=== PATIENT | male | born 2000 | race Caucasian/White ===

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

== ENCOUNTER 2021-06-04 01:38 | Observation (INO) ==
[2021-06-04 02:27] LABS: Basophils # (auto) 0.02 K/uL (0-0.2); Basophils % (auto) 0.1 %; Eosinophils # (auto) 0.04 K/uL (0-0.5); Eosinophils % (auto) 0.3 %; Hematocrit (blood only) 40.4 % (42-52); Hemoglobin 14.4 g/dL (14.0-18.0); Immature Granulocytes # (auto) 0.03 K/uL (0.00-0.02); Immature Granulocytes % (auto) 0.2 %; Lymphocytes # (auto) 1.38 K/uL (1.2-3.4); Lymphocytes % (auto) 9.3 %; Mean Corpuscular Hemoglobin 30.6 pg (25-34); Mean Corpuscular Hgb Conc 35.6 g/dL (32-36); Mean Corpuscular Volume 85.8 fL (80-100); Mean Platelet Volume 10.4 fL (7.4-10.4); Monocytes # (auto) 0.74 K/uL (0.11-0.59); Neutrophils # (auto) 12.68 K/uL (1.4-6.5); Neutrophils % (auto) 85.1 %; Platelet Count 216 K/uL (130-400); RDW Coefficient of Variation 12.3 % (11.5-14.5); Red Blood Count 4.71 M/uL (4.7-6.1); White Blood Count 14.89 K/uL (4.8-10.8)
[2021-06-04 02:34] LABS: Appearance Urine Cloudy (Clear); Bacteria Urine Automated Negative (Negative); Bilirubin Urine Negative (Negative); Blood Urine Negative (Negative); Color Urine Dark Yellow; Epithelial Cell Urine Auto 20-30 /lpf (0-5); Glucose Urine UA Negative (Negative); Ketones Urine 2+ (Negative); Leukocyte Esterase Urine Negative (Negative); Nitrite Urine Negative (Negative); Protein Urine Trace (Negative); Specific Gravity Urine 1.041 (1.000-1.030); Urobilinogen Urine Negative (Negative); pH Urine 5.5 (4.5-7.5)
[2021-06-04 02:52] LABS: Albumin Globulin Ratio 1.2 (0.9-2); Albumin Level 4.3 gm/dl (3.4-5.0); BUN Creatinine Ratio 12.8 (10-20); Bilirubin,Total 2.2 mg/dl (0.2-1); Calcium 9.7 mg/dl (8.5-10.1); Creatinine Clr Calc Pharmacy 111.7 ml/min; Est GFR (African American) 134.7 ml/min; Est GFR (Non-African American) 116.2 ml/min; Globulin 3.7 gm/dl (2.5-4.0)
[2021-06-04] MEDS ORDERED: ONDANSETRON INJ 2 MG/ML 2 ML VIAL IV STA (04:44)
[2021-06-04] MEDS ORDERED: MoRPHine SULFATE 4 MG/ML 1 ML CARP\\VIAL IV STA ×2 (04:44→07:58)
[2021-06-04] MEDS ORDERED: SODIUM CHLORIDE 0.9% 1000ML 1,000 ML IV ONE (05:21)
--- NOTE | 2021-06-04 06:13 | Emergency Department Note ---
History of Present Illness General Chief complaint: Abdominal Pain Stated complaint: ABD PAIN Time Seen by Provider: 06/04/21 04:29 History of Present Illness Maximum Pain Intensity: 3 This 20-year-old male patient presents to the emergency department today for evaluation of right lower quadrant abdominal pain which began at 8 AM yesterday. The patient states symptoms have been progressively worsening throughout the day. He has been experiencing worsening pain, nausea, and has not been able to eat or drink anything due to the symptoms. He denies any fever but does report chills. He has not taken any medications for his symptoms. He denies any history of similar symptoms. The patient does still have his appendix. He rates his pain 3/10 at present describes it as sharp. He denies any diarrhea or constipation. No chest pain or dyspnea. No recent URI symptoms. Home Medications Medication Instructions Recorded Confirmed Type No Known Home Medications 06/07/19 06/10/19 History cefuroxime axetil 500 mg tablet 500 mg PO BID #3 tab 06/12/19 Rx nicotine 7 mg/24 hr daily 14 mg TRANSDERMAL QAM #21 ea 06/12/19 Rx transdermal patch prednisone 20 mg tablet 40 mg PO DAILY #60 tab 06/12/19 Rx Allergies Allergy/AdvReac Type Severity Reaction Status Date / Time No Known Allergies Allergy Verified 06/10/19 13:25 Past Med/Surg History Medical History (Updated 06/04/21 @ 08:47 by Sandra Charles PA-C) No pertinent past medical history Social History Smoking Status: Current some day smoker Tobacco Type: E-cigarettes / Vaping Cigarettes Per Day: hits whenever; Hx Alcohol Use: Yes Alcohol type: beer Hx Substance Use: Yes Last Used Substance: Days (ago) Preferred Language: Lithuanian Communication Ability: Effective Business Continuity Specialist Required: No Beliefs That Will Affect Care: None marital status: Single Current Living Situation: Other Current Living Situation Comment: [employer] [facility] Feels Safe at Home: Yes Assistive Devices: Oxygen - Continuous Review of Systems A total of 10 systems reviewed and were otherwise negative Physical Exam Vital Signs Vital Signs - 24 hr 06/04/21 01:40 06/04/21 04:13 06/04/21 06:32 Temperature 36.9 C Temperature Source Temporal Artery Scan Pulse Rate 91 H Pulse Rate [Finger] 72 76 Respiratory Rate 18 20 14 Respiratory Effort / Characteristics Non-Labored Spontaneous Non-Labored Spontaneous Non-Labored Spontaneous Respiratory Depth Normal Normal Normal Respiratory Pattern Regular Blood Pressure 117/67 Blood Pressure [Right Arm] 125/68 128/74 Blood Pressure Mean 83 Blood Pressure Mean [Right Arm] 87 92 Blood Pressure Position Sitting Blood Pressure Position [Right Arm] Pulse Oximetry 99 98 99 Oxygen Delivery Method Room Air Room Air Room Air Sepsis Recent Fever Within 48 Hours No Sepsis New/Unexplained Change in Mental Status N/A Sepsis Action Taken by Nursing No Action Required 06/04/21 07:51 06/04/21 08:36 Temperature Temperature Source Pulse Rate Pulse Rate [Finger] 83 75 Respiratory Rate 16 16 Respiratory Effort / Characteristics Respiratory Depth Respiratory Pattern Blood Pressure Blood Pressure [Right Arm] 117/69 117/64 Blood Pressure Mean Blood Pressure Mean [Right Arm] 85 81 Blood Pressure Position Blood Pressure Position [Right Arm] Semi-fowlers Pulse Oximetry 100 100 Oxygen Delivery Method Room Air Room Air Sepsis Recent Fever Within 48 Hours Sepsis New/Unexplained Change in Mental Status Sepsis Action Taken by Nursing VITALS: Vitals are noted on the nurse's note and reviewed by myself. Vital signs stable. GENERAL: This is a 20-year-old white male, in no acute distress, nondiaphoretic, well-developed well-nourished. SKIN: The skin was without rashes, erythema, edema, or bruising. There is no tenting of the skin. Capillary refill less than 2 seconds. HEAD: Normocephalic atraumatic. EYES: Conjunctivae without injection, sclerae without icterus. NECK: Supple without nuchal rigidity. No lymphadenopathy. Cervical spine is nontender. No JVD. HEART: Regular rate and rhythm without murmurs gallops or rubs. LUNGS: Clear to auscultation bilaterally without wheezes, rales or rhonchi. No retractions or accessory muscle use. ABDOMEN: Positive bowel sounds x 4. Right lower quadrant tenderness to palpation over McBurney's point. Positive Rovsing's sign. Positive rebound tenderness. Abdomen otherwise soft, without masses or organomegaly. Sweeney sign negative. No guarding or rebound tenderness. MUSCULOSKELETAL: No muscle atrophy, erythema, or edema noted. Full range of motion without joint tenderness in all extremities. No tenderness to palpation. Normal gait. Strength 5/5 throughout. NEURO: Patient was alert and oriented to person place and time. No focal neurological deficits. Course Course The patient was seen and evaluated as above. An order was placed for continuous cardiac monitoring. The monitor shows a normal sinus rhythm at a rate of 72 bpm. IV access obtained, labs drawn. Labs reviewed by myself. CT imaging performed and reviewed by myself and radiologist as noted. I discussed the findings with the patient at bedside. I discussed the case with Kristen Norton PA-C with general surgery. She did agree to see and evaluate the patient. Patient medicated with IV Mefoxin. I did offer to contact the patient's parents and he declined. Administered Medications Discontinued Medications Sodium Chloride (Nss 1000ml) 1,000 mls @ 999 mls/hr IV .Q1H1M ONE Stop: 06/04/21 06:21 Last Infusion: 06/04/21 06:34 Dose: 0 mls/hr Documented by: [id number] Admin: 06/04/21 05:25 Dose: 999 mls/hr Documented by: [id number] Ioversol (Optiray 320 100ml) 95 ml IV ONCE ONE Stop: 06/04/21 07:50 Last Admin: 06/04/21 07:50 Dose: 95 ml Documented by: [id number] Morphine Sulfate (Morphine Sulfate 4 Mg/Ml 1 Ml Carp\Vial) 4 mg IV NOW STA Stop: 06/04/21 04:45 Last Admin: 06/04/21 04:50 Dose: 4 mg Documented by: [id number] Morphine Sulfate (Morphine Sulfate 4 Mg/Ml 1 Ml Carp\Vial) 4 mg IV NOW STA Stop: 06/04/21 07:59 Last Admin: 06/04/21 08:24 Dose: 4 mg Documented by: [id number] Ondansetron HCl (Ondansetron Inj 2 Mg/Ml 2 Ml Vial) 4 mg IV NOW STA Stop: 06/04/21 04:45 Last Admin: 06/04/21 04:51 Dose: 4 mg Documented by: [id number] Medical Decision Making Differential Diagnosis Etiologies such as appendicitis, diverticulitis, obstruction, inflammatory bowel disease, renal colic, PUD, biliary pathology, pancreatitis, mesenteric ischemia, aortic pathology, infections, genitourinary, UTI, perforated viscus, as well as others were entertained. Medical Records Attestation: I reviewed the patient's medical records. Home Medications Current Medication List: was personally reviewed by sd Laboratory Data Leukocytosis of 14.89. No significant anemia or thrombocytopenia. Renal, hepatic function and electrolytes without significant abnormality. Urinalysis positive for 2+ ketones. This does appear to be contaminated specimen with 20- 30,000 epithelial cells. Result diagrams: 06/04/21 02:08 06/04/21 02:08 Lab Results 06/04/21 06/04/21 06/04/21 Range/Units 02:08 02:08 02:09 WBC 14.89 H (4.8-10.8) K/uL RBC 4.71 (4.7-6.1) M/uL Hgb 14.4 (14.0-18.0) g/dL Hct 40.4 L (42-52) % MCV 85.8 (80-100) fL MCH 30.6 (25-34) pg MCHC 35.6 (32-36) g/dL RDW Std Deviation 39.0 (36.4-46.3) fL RDW Coeff of Cheryl 12.3 (11.5-14.5) % Plt Count 216 (130-400) K/uL MPV 10.4 (7.4-10.4) fL Immature Gran % (Auto) 0.2 % Neut % (Auto) 85.1 % Lymph % (Auto) 9.3 % [place] % (Auto) 5.0 % Eos % (Auto) 0.3 % Baso % (Auto) 0.1 % Neut # (Auto) 12.68 H (1.4-6.5) K/uL Lymph # (Auto) 1.38 (1.2-3.4) K/uL [place] # (Auto) 0.74 H (0.11-0.59) K/uL Eos # (Auto) 0.04 (0-0.5) K/uL Baso # (Auto) 0.02 (0-0.2) K/uL Immature Gran # (Auto) 0.03 H (0.00-0.02) K/uL Sodium 135 L (136-145) mmol/L Potassium (3.5-5.1) mmol/L Chloride 104 (98-107) mmol/L Carbon Dioxide 27 (21-32) mmol/L Anion Gap 4.0 (3-11) BUN 12 (7-18) mg/dl Creatinine 0.94 (0.6-1.4) mg/dl Est Cr Clr Drug Dosing 111.7 ml/min Est GFR ( Amer) 134.7 ml/min Est GFR (Non-Af Amer) 116.2 ml/min BUN/Creatinine Ratio 12.8 (10-20) Glucose 106 H (70-99) mg/dl Calcium 9.7 (8.5-10.1) mg/dl Total Bilirubin 2.2 H (0.2-1) mg/dl AST (15-37) U/L ALT 17 (12-78) U/L Alkaline Phosphatase 91 (45-117) U/L Total Protein 8.0 (6.4-8.2) gm/dl Albumin 4.3 (3.4-5.0) gm/dl Globulin 3.7 (2.5-4.0) gm/dl Albumin/Globulin Ratio 1.2 (0.9-2) Lipase 64 L (73-393) U/L Urine Color Dark Yellow Urine Appearance Cloudy A (Clear) Urine pH 5.5 (4.5-7.5) Ur Specific Horace 1.041 H (1.000-1.030) Urine Protein Trace H (Negative) Urine Glucose (UA) Negative (Negative) Urine Ketones 2+ H (Negative) Urine Blood Negative (Negative) Urine Nitrite Negative (Negative) Urine Bilirubin Negative (Negative) Urine Urobilinogen Negative (Negative) Ur Leukocyte Esterase Negative (Negative) Urine WBC (Auto) 1-5 (0-5) /hpf Urine RBC (Auto) 5-10 H (0-4) /hpf U Hyaline Cast (Auto) 5-10 H (0-5) /lpf U Epithel Cells (Auto) 20-30 H (0-5) /lpf Urine Bacteria (Auto) Negative (Negative) COVID-19 Eval Order SARS-CoV-2 (PCR) (Negative) 06/04/21 06/04/21 Range/Units 05:50 05:50 WBC (4.8-10.8) K/uL RBC (4.7-6.1) M/uL Hgb (14.0-18.0) g/dL Hct (42-52) % MCV (80-100) fL MCH (25-34) pg MCHC (32-36) g/dL RDW Std Deviation (36.4-46.3) fL RDW Coeff of Cheryl (11.5-14.5) % Plt Count (130-400) K/uL MPV (7.4-10.4) fL Immature Gran % (Auto) % Neut % (Auto) % Lymph % (Auto) % [place] % (Auto) % Eos % (Auto) % Baso % (Auto) % Neut # (Auto) (1.4-6.5) K/uL Lymph # (Auto) (1.2-3.4) K/uL [place] # (Auto) (0.11-0.59) K/uL Eos # (Auto) (0-0.5) K/uL Baso # (Auto) (0-0.2) K/uL Immature Gran # (Auto) (0.00-0.02) K/uL Sodium (136-145) mmol/L Potassium (3.5-5.1) mmol/L Chloride (98-107) mmol/L Carbon Dioxide (21-32) mmol/L Anion Gap (3-11) BUN (7-18) mg/dl Creatinine (0.6-1.4) mg/dl Est Cr Clr Drug Dosing ml/min Est GFR ( Amer) ml/min Est GFR (Non-Af Amer) ml/min BUN/Creatinine Ratio (10-20) Glucose (70-99) mg/dl Calcium (8.5-10.1) mg/dl Total Bilirubin (0.2-1) mg/dl AST (15-37) U/L ALT (12-78) U/L Alkaline Phosphatase (45-117) U/L Total Protein (6.4-8.2) gm/dl Albumin (3.4-5.0) gm/dl Globulin (2.5-4.0) gm/dl Albumin/Globulin Ratio (0.9-2) Lipase (73-393) U/L Urine Color Urine Appearance (Clear) Urine pH (4.5-7.5) Ur Specific Horace (1.000-1.030) Urine Protein (Negative) Urine Glucose (UA) (Negative) Urine Ketones (Negative) Urine Blood (Negative) Urine Nitrite (Negative) Urine Bilirubin (Negative) Urine Urobilinogen (Negative) Ur Leukocyte Esterase (Negative) Urine WBC (Auto) (0-5) /hpf Urine RBC (Auto) (0-4) /hpf U Hyaline Cast (Auto) (0-5) /lpf U Epithel Cells (Auto) (0-5) /lpf Urine Bacteria (Auto) (Negative) COVID-19 Eval Order Covid19 at [facility], [place] SARS-CoV-2 (PCR) NEGATIVE (Negative) Imaging Data Radiologist's Impression: Abdomen/Pelvis CT 06/04/21 04:44 CT abd pelvis oral and IV con CLINICAL HISTORY: RLQ abdominal pain COMPARISON STUDY: No previous studies for comparison. CT DOSE: 278.59 mGy.cm TECHNIQUE: Standard CT of the Abdomen and Pelvis was performed with IV contrast. A dose lowering technique was utilized adhering to the principles of ALARA. Contrast Volume: Optiray 320, 95 ml. The patient received oral contrast. FINDINGS: Lung base: The lung bases are clear. Abdominal cavity: There is no evidence for abdominal mass, adenopathy or ascites. Liver: There is homogeneous attenuation of the liver parenchyma. There is no evidence for enhancing mass lesion. Spleen: There is homogeneous attenuation of the splenic parenchyma. There is no enhancing mass lesion. Pancreas: There is homogeneous attenuation of the pancreatic parenchyma. There is no evidence for mass lesion or peripancreatic fluid collection. Gall Bladder: The gallbladder is well distended with no evidence for intraluminal calculi, wall thickening or pericholecystic edema. Adrenal glands: The adrenal glands are normal in size and attenuation. There is no evidence for enhancing mass lesion. Kidneys: There is homogeneous attenuation of the renal parenchyma bilaterally. There is no evidence for renal calculus or hydronephrosis. There is no evidence for enhancing mass. Bowel: Oral contrast present within stomach, small bowel and extending into the colon to the level of the splenic flexure. There is evidence for acute appendi citis with the appendix dilated to 16 mm. There is also evidence for a walled off pericecal abscess compressing upon the cecum measuring approximately 4.0 x 2.4 cm. An air bubble is present within the walled off fluid collection. Inflammatory changes are present in the right lower quadrant. There is no evidence for free air. There is minimal free fluid seen within the pelvis. The remaining bowel loops are normally placed within the abdomen and pelvis. There is no evidence for mass lesion. There is no evidence for free air. Bladder: The bladder is distended with no evidence for focal mass, calculus or diverticulum. : There is no evidence for pelvic mass or adenopathy. There is no evidence for pelvic ascites. Vasculature: There is no evidence for aneurysmal dilatation of the abdominal aorta. Osseous structures: There is no acute osseous pathology. IMPRESSION: 1. Acute appendicitis with evidence for a walled off appendiceal abscess. There is minimal free fluid seen within the pelvis. There is no evidence for free air. Critical result will be called to the emergency department. ACT 112: Negative or not required by law. Electronically signed by: James White M.D. 06/04/2021 8:17 AM Blood Pressure Blood Pressure Findings: Normal blood pressure MDM Narrative This 20-year-old male patient presents to the emergency department today for evaluation of right lower quadrant abdominal pain. This has been ongoing for most 24 hours. Patient does have a leukocytosis of 14,[address] while in the ED. CT imaging consistent with acute appendicitis with a walled off abscess. Patient was hydrated with IV fluids. He was medicated with morphine and Zofran. He was given antibiotics preop. He will be seen by the general surgery team. Please see surgery dictation regarding ongoing management and care of this patient The chart was completed utilizing [employer] Speech voice recognition software. Grammatical errors, random word insertions, pronoun errors, and incomplete sentences are an occasional consequence of this system due to software limitations, ambient noise, and hardware issues. Any formal questions or concerns about the content, text, or information contained within the body of this dictation should be directly addressed to the provider for clarification. Impression & Plan Acute appendicitis Discharge Plan Visit Data Chief Complaint: Abdominal Pain Stated Complaint: ABD PAIN ED Provider: Ashlie Henderson ED Midlevel Provider: Sandra Charles Discharge Problem: Acute appendicitis Patient Disposition: Being Evaluated by Surgeon Forms Stand Alone Forms: My SocialBro Prescriptions Prescriptions: No Action No Known Home Medications RF: 0 cefuroxime axetil 500 mg Tablet 500 mg PO BID Qty: 3 RF: 0 prednisone 20 mg Tablet 40 mg PO DAILY Qty: 60 RF: 0 nicotine 7 mg/24 hr Patch 24 Hour 14 mg transdermal QAM Qty: 21 RF: 0 Referrals Referrals: [facility] [Primary Care Provider] -
[2021-06-04] MEDS ORDERED: OPTIRAY 320 100ml IV ONE (07:49)
--- NOTE | 2021-06-04 08:18 | CT Scan Report ---
CT abd pelvis oral and IV con CLINICAL HISTORY: RLQ abdominal pain COMPARISON STUDY: No previous studies for comparison. CT DOSE: 278.59 mGy.cm TECHNIQUE: Standard CT of the Abdomen and Pelvis was performed with IV contrast. A dose lowering logan hnique was utilized adhering to the principles of ALARA. Contrast Volume: Optiray 320, 95 ml. The patient received oral contrast. FINDINGS: Lung base: The lung bases are clear. Abdominal cavity: There is no evidence for abdominal mass, adenopathy or ascites. Liver: There is homogeneous attenuation of the liver parenchyma. There is no evidence for enhancing m ass lesion. Spleen: There is homogeneous attenuation of the splenic parenchyma. There is no enhancing mass lesion . Pancreas: There is homogeneous attenuation of the pancreatic parenchyma. There is no evidence for mas s lesion or peripancreatic fluid collection. Gall Bladder: The gallbladder is well distended with no evidence for intraluminal calculi, wall thick ening or pericholecystic edema. Adrenal glands: The adrenal glands are normal in size and attenuation. There is no evidence for enhan cing mass lesion. Kidneys: There is homogeneous attenuation of the renal parenchyma bilaterally. There is no evidence f or renal calculus or hydronephrosis. There is no evidence for enhancing mass. Bowel: Oral contrast present within stomach, small bowel and extending into the colon to the level of the splenic flexure. There is evidence for acute appendicitis with the appendix dilated to 16 mm. Th ere is also evidence for a walled off pericecal abscess compressing upon the cecum measuring approxim ately 4.0 x 2.4 cm. An air bubble is present within the walled off fluid collection. Inflammatory valorie nges are present in the right lower quadrant. There is no evidence for free air. There is minimal caty e fluid seen within the pelvis. The remaining bowel loops are normally placed within the abdomen and pelvis. There is no evidence fo r mass lesion. There is no evidence for free air. Bladder: The bladder is distended with no evidence for focal mass, calculus or diverticulum. : There is no evidence for pelvic mass or adenopathy. There is no evidence for pelvic ascites. Vasculature: There is no evidence for aneurysmal dilatation of the abdominal aorta. Osseous structures: There is no acute osseous pathology. IMPRESSION: 1. Acute appendicitis with evidence for a walled off appendiceal abscess. There is minimal free fluid seen within the pelvis. There is no evidence for free air. Critical result will be called to the emergency department. ACT 112: Negative or not required by law. Electronically signed by: James White M.D. 06/04/2021 8:17 AM
[2021-06-04] MEDS ORDERED: cefOXitin 2,000 MG/60 ML BAG IV STA (08:38)
[2021-06-04] MEDS ORDERED: ONDANSETRON INJ 2 MG/ML 2 ML VIAL ONE (09:58)
[2021-06-04] MEDS ORDERED: PROPOFOL IV EMULSION 10 MG/ML 20 ML VIAL IV ONE (09:58)
[2021-06-04] MEDS ORDERED: ROCURONIUM BROMIDE 10 MG/ML 5 ML VIAL IV ONE (09:58)
[2021-06-04] MEDS ORDERED: DEXAMETHASONE SOD INJ 4 MG/ML VIAL ONE (09:58)
[2021-06-04] MEDS ORDERED: MIDAZOLAM HCL 1 MG/ML 2ML VIAL ONE (09:58)
[2021-06-04] MEDS ORDERED: fentaNYL citrate 100 MCG/2 ML VIAL ONE (09:58)
--- NOTE | 2021-06-04 09:58 | Anesthesiology Consultation ---
Date of Service June 04, 2021 Assessment & Plan (1) Encounter for pre-operative examination: Chart Review Chart Review: Acceptable Risk for Surgery Consults Requested none Proposed Anesthesia Risk / Benefits Reviewed With: PT / POA / Parent / Guardian, Accepts Plan and Informed Consent Obtained History Surgery Operation Date: 06/04/21 09:40 Proposed Procedures p Laparoscopic Appendectomy - Neda Carmen MD Height/Weight Height: 5 ft 10 in Weight: 63 kg Allergies Allergy/AdvReac Type Severity Reaction Status Date / Time No Known Allergies Allergy Verified 06/10/19 13:25 Medications Home Medications Medication Instructions Recorded Confirmed Last Taken No Known Home Medications 06/07/19 06/10/19 Unknown cefuroxime axetil 500 mg tablet 500 mg PO BID #3 tab 06/12/19 Unknown nicotine 7 mg/24 hr daily 14 mg TRANSDERMAL QAM #21 ea 06/12/19 Unknown transdermal patch prednisone 20 mg tablet 40 mg PO DAILY #60 tab 06/12/19 Unknown NPO Date Last Intake of Fluids: 06/04/21 Time Last Intake of Fluids: 07:00 Last Intake of Fluids Comment: CT contrast Date Last Intake of Solids: 06/03/21 Time Last Intake of Solids: 19:00 Past Medical History Medical History (Updated 06/04/21 @ 09:57 by Samuel Champagne, ) No pertinent past medical history Exercise / Class Metabolic Activity II 4-5 Yardwork/Stairs/Walk up hill Past Anesthesia History No Hx of Anesthesia Complications and No Family Hx of Anesthesia Complications History of PONV No Hx of PONV and No Hx of Motion Sickness Social History Smoking Status: Current some day smoker tobacco type: e-cigarettes Smoking cigarettes per day: hits whenever Hx Alcohol Use: Yes Alcohol type: beer alcohol intake frequency: a few times a week Hx Substance Use: Yes substance use type: marijuana Last Used Substance: Days (ago) Physical Exam Vital Signs Last Vital Signs Temp 98.4 F 06/04/21 01:40 Pulse 75 06/04/21 08:36 Resp 16 06/04/21 08:36 BP 117/64 06/04/21 08:36 Pulse Ox 100 06/04/21 08:36 ENMT Mouth: no dentition abnormality Thyromental Distance: > or= 3.5 Finger Breadths Mallampati Class: II Neck normal visual inspection Respiratory normal respiratory effort Auscultation: lungs clear to auscultation bilaterally Cardiovascular Rate/Rhythm: regular rate and regular rhythm Testing Laboratory Results 06/04/21 02:08 06/04/21 02:08 Urine Color Dark Yellow 06/04/21 02:09 Urine Appearance Cloudy (Clear) A 06/04/21 02:09 Urine pH 5.5 (4.5-7.5) 06/04/21 02:09 Ur Specific [place] 1.041 (1.000-1.030) H 06/04/21 02:09 Urine Protein Trace (Negative) H 06/04/21 02:09 Urine Glucose (UA) Negative (Negative) 06/04/21 02:09 Urine Ketones 2+ (Negative) H 06/04/21 02:09 Urine Nitrite Negative (Negative) 06/04/21 02:09 Ur Leukocyte Esterase Negative (Negative) 06/04/21 02:09 Urine WBC (Auto) 1-5 /hpf (0-5) 06/04/21 02:09 Urine RBC (Auto) 5-10 /hpf (0-4) H 06/04/21 02:09 U Hyaline Cast (Auto) 5-10 /lpf (0-5) H 06/04/21 02:09 U Epithel Cells (Auto) 20-30 /lpf (0-5) H 06/04/21 02:09 Urine Bacteria (Auto) Negative (Negative) 06/04/21 02:09
--- NOTE | 2021-06-04 10:21 | History & Physical Report ---
Date of Service June 04, 2021 Assessment & Plan (1) Acute appendicitis: Plan: 20 year-old male with 1 day history of abdominal pain. CT scan showing appendicitis with wall off pericecal abscess measuring 4 x 2.4 cm. Leukocytosis of 14.89. Abdomen is soft, tender in RLQ, no peritonitis. Plan: Discussed CT scan findings with patient and recommendation for laparoscopic appendectomy possible open. Discussed risks of procedure and possbility of needing drain placement and prolonged hospital stay given abscess. Informed consent obtained by dr. pryor. NPO IV Cefoxitin will be admitted postop Dr. Pryor has seen and examined pt, agrees with above. I reviewed pt's H/P, labs, CT scan with pt, I recommend to do laparoscopic appendectomy, possible open , D/W benefits, risks and alternatives of the surgery, the risks - infection, bleeding, injury other organs, abscess, may need more procedure, sepsis, pt understood, he agrees with the surgery, he signed informed consent, I answered all questions, pre-op antibiotic, Dr. Pryor History of Present Illness Chief Complaint: abdominal pain Primary Care Provider: [facility] Yuval is a 20 year old [employer] student who presented to emergency room with complaint of abdominal pain that started yesterday morning. Became more severe overnight. No fever, chills, nausea, vomiting, diarrhea, constipation, dysuria. Pain located in mid abdomen and right lower abdomen. Never had similar pain before. No prior abdominal surgeries. Allergies Allergy/AdvReac Type Severity Reaction Status Date / Time No Known Allergies Allergy Verified 06/10/19 13:25 Home Medications Medication Instructions Recorded Confirmed Type No Known Home Medications 06/07/19 06/10/19 History cefuroxime axetil 500 mg tablet 500 mg PO BID #3 tab 06/12/19 Rx nicotine 7 mg/24 hr daily 14 mg TRANSDERMAL QAM #21 ea 06/12/19 Rx transdermal patch prednisone 20 mg tablet 40 mg PO DAILY #60 tab 06/12/19 Rx Past Med/Surg History Medical History (Updated 06/04/21 @ 09:57 by Samuel Champagne DO) No pertinent past medical history Social History Smoking Status: Current some day smoker Tobacco Type: E-cigarettes / Vaping Cigarettes Per Day: hits whenever; Hx Alcohol Use: Yes Alcohol type: beer Hx Substance Use: Yes Last Used Substance: Days (ago) Preferred Language: Portuguese Communication Ability: Effective Junior Assistant Manager Required: No Beliefs That Will Affect Care: None marital status: Single Current Living Situation: Other Current Living Situation Comment: [employer] Feels Safe at Home: Yes Assistive Devices: Oxygen - Continuous Review of Systems Review of Systems: All systems reviewed & are unremarkable except as noted in HPI & below Physical Exam Constitutional: WD/WN, vitals as above no acute distress and not ill appearing Respiratory: normal respiratory effort, lungs clear to auscultation Cardiovascular: RRR, no murmur, no edema Gastrointestinal (Abdomen): Inspection/Auscultation: abdomen normal to inspection; abdomen not distended Percussion/Palpation: + abdomen tender (RLQ and umbilical) and abdomen soft; no guarding and abdomen not rigid Skin: no rashes, warm and dry Psychiatric: A+Ox3, euthymic affect Results & Data Results & Data ([facility]) Vital Signs (Past 12 Hours) Vital Signs Temp Pulse Pulse Resp BP BP Pulse Ox 06/04/21 10:01 96 H 20 128/68 97 06/04/21 08:36 75 16 117/64 100 06/04/21 07:51 83 16 117/69 100 06/04/21 06:32 76 14 128/74 99 06/04/21 04:13 72 20 125/68 98 06/04/21 01:40 36.9 C 91 H 18 117/67 99 Laboratory Results 06/04/21 06/04/21 06/04/21 Range/Units 05:50 05:50 02:09 WBC (4.8-10.8) K/uL RBC (4.7-6.1) M/uL Hgb (14.0-18.0) g/dL Hct (42-52) % MCV (80-100) fL MCH (25-34) pg MCHC (32-36) g/dL RDW Std Deviation (36.4-46.3) fL RDW Coeff of Cheryl (11.5-14.5) % Plt Count (130-400) K/uL MPV (7.4-10.4) fL Immature Gran % (Auto) % Neut % (Auto) % Lymph % (Auto) % Lincoln % (Auto) % Eos % (Auto) % Baso % (Auto) % Neut # (Auto) (1.4-6.5) K/uL Lymph # (Auto) (1.2-3.4) K/uL Lincoln # (Auto) (0.11-0.59) K/uL Eos # (Auto) (0-0.5) K/uL Baso # (Auto) (0-0.2) K/uL Immature Gran # (Auto) (0.00-0.02) K/uL Sodium (136-145) mmol/L Potassium (3.5-5.1) mmol/L Chloride (98-107) mmol/L Carbon Dioxide (21-32) mmol/L Anion Gap (3-11) BUN (7-18) mg/dl Creatinine (0.6-1.4) mg/dl Est Cr Clr Drug Dosing ml/min Est GFR ( Amer) ml/min Est GFR (Non-Af Amer) ml/min BUN/Creatinine Ratio (10-20) Glucose (70-99) mg/dl Calcium (8.5-10.1) mg/dl Total Bilirubin (0.2-1) mg/dl AST (15-37) U/L ALT (12-78) U/L Alkaline Phosphatase (45-117) U/L Total Protein (6.4-8.2) gm/dl Albumin (3.4-5.0) gm/dl Globulin (2.5-4.0) gm/dl Albumin/Globulin Ratio (0.9-2) Lipase (73-393) U/L Urine Color Dark Yellow Urine Appearance Cloudy A (Clear) Urine pH 5.5 (4.5-7.5) Ur Specific Occidental 1.041 H (1.000-1.030) Urine Protein Trace H (Negative) Urine Glucose (UA) Negative (Negative) Urine Ketones 2+ H (Negative) Urine Blood Negative (Negative) Urine Nitrite Negative (Negative) Urine Bilirubin Negative (Negative) Urine Urobilinogen Negative (Negative) Ur Leukocyte Esterase Negative (Negative) Urine WBC (Auto) 1-5 (0-5) /hpf Urine RBC (Auto) 5-10 H (0-4) /hpf U Hyaline Cast (Auto) 5-10 H (0-5) /lpf U Epithel Cells (Auto) 20-30 H (0-5) /lpf Urine Bacteria (Auto) Negative (Negative) COVID-19 Eval Order Covid19 at [facility] SARS-CoV-2 (PCR) NEGATIVE (Negative) 06/04/21 06/04/21 Range/Units 02:08 02:08 WBC 14.89 H (4.8-10.8) K/uL RBC 4.71 (4.7-6.1) M/uL Hgb 14.4 (14.0-18.0) g/dL Hct 40.4 L (42-52) % MCV 85.8 (80-100) fL MCH 30.6 (25-34) pg MCHC 35.6 (32-36) g/dL RDW Std Deviation 39.0 (36.4-46.3) fL RDW Coeff of Cheryl 12.3 (11.5-14.5) % Plt Count 216 (130-400) K/uL MPV 10.4 (7.4-10.4) fL Immature Gran % (Auto) 0.2 % Neut % (Auto) 85.1 % Lymph % (Auto) 9.3 % Lincoln % (Auto) 5.0 % Eos % (Auto) 0.3 % Baso % (Auto) 0.1 % Neut # (Auto) 12.68 H (1.4-6.5) K/uL Lymph # (Auto) 1.38 (1.2-3.4) K/uL Lincoln # (Auto) 0.74 H (0.11-0.59) K/uL Eos # (Auto) 0.04 (0-0.5) K/uL Baso # (Auto) 0.02 (0-0.2) K/uL Immature Gran # (Auto) 0.03 H (0.00-0.02) K/uL Sodium 135 L (136-145) mmol/L Potassium (3.5-5.1) mmol/L Chloride 104 (98-107) mmol/L Carbon Dioxide 27 (21-32) mmol/L Anion Gap 4.0 (3-11) BUN 12 (7-18) mg/dl Creatinine 0.94 (0.6-1.4) mg/dl Est Cr Clr Drug Dosing 111.7 ml/min Est GFR ( Amer) 134.7 ml/min Est GFR (Non-Af Amer) 116.2 ml/min BUN/Creatinine Ratio 12.8 (10-20) Glucose 106 H (70-99) mg/dl Calcium 9.7 (8.5-10.1) mg/dl Total Bilirubin 2.2 H (0.2-1) mg/dl AST (15-37) U/L ALT 17 (12-78) U/L Alkaline Phosphatase 91 (45-117) U/L Total Protein 8.0 (6.4-8.2) gm/dl Albumin 4.3 (3.4-5.0) gm/dl Globulin 3.7 (2.5-4.0) gm/dl Albumin/Globulin Ratio 1.2 (0.9-2) Lipase 64 L (73-393) U/L Urine Color Urine Appearance (Clear) Urine pH (4.5-7.5) Ur Specific Occidental (1.000-1.030) Urine Protein (Negative) Urine Glucose (UA) (Negative) Urine Ketones (Negative) Urine Blood (Negative) Urine Nitrite (Negative) Urine Bilirubin (Negative) Urine Urobilinogen (Negative) Ur Leukocyte Esterase (Negative) Urine WBC (Auto) (0-5) /hpf Urine RBC (Auto) (0-4) /hpf U Hyaline Cast (Auto) (0-5) /lpf U Epithel Cells (Auto) (0-5) /lpf Urine Bacteria (Auto) (Negative) COVID-19 Eval Order SARS-CoV-2 (PCR) (Negative) Diagnostic Findings CT abd pelvis oral and IV con CLINICAL HISTORY: RLQ abdominal pain COMPARISON STUDY: No previous studies for comparison. CT DOSE: 278.59 mGy.cm TECHNIQUE: Standard CT of the Abdomen and Pelvis was performed with IV contrast. A dose lowering technique was utilized adhering to the principles of ALARA. Contrast Volume: Optiray 320, 95 ml. The patient received oral contrast. FINDINGS: Lung base: The lung bases are clear. Abdominal cavity: There is no evidence for abdominal mass, adenopathy or ascites. Liver: There is homogeneous attenuation of the liver parenchyma. There is no evidence for enhancing mass lesion. Spleen: There is homogeneous attenuation of the splenic parenchyma. There is no enhancing mass lesion. Pancreas: There is homogeneous attenuation of the pancreatic parenchyma. There is no evidence for mass lesion or peripancreatic fluid collection. Gall Bladder: The gallbladder is well distended with no evidence for intraluminal calculi, wall thickening or pericholecystic edema. Adrenal glands: The adrenal glands are normal in size and attenuation. There is no evidence for enhancing mass lesion. Kidneys: There is homogeneous attenuation of the renal parenchyma bilaterally. There is no evidence for renal calculus or hydronephrosis. There is no evidence for enhancing mass. Bowel: Oral contrast present within stomach, small bowel and extending into the colon to the level of the splenic flexure. There is evidence for acute appendicitis with the appendix dilated to 16 mm. There is also evidence for a walled off pericecal abscess compressing upon the cecum measuring approximately 4.0 x 2.4 cm. An air bubble is present within the walled off fluid collection. Inflammatory changes are present in the right lower quadrant. There is no evidence for free air. There is minimal free fluid seen within the pelvis. The remaining bowel loops are normally placed within the abdomen and pelvis. There is no evidence for mass lesion. There is no evidence for free air. Bladder: The bladder is distended with no evidence for focal mass, calculus or diverticulum. : There is no evidence for pelvic mass or adenopathy. There is no evidence for pelvic ascites. Vasculature: There is no evidence for aneurysmal dilatation of the abdominal aorta. Osseous structures: There is no acute osseous pathology. IMPRESSION: 1. Acute appendicitis with evidence for a walled off appendiceal abscess. There is minimal free fluid seen within the pelvis. There is no evidence for free air. Critical result will be called to the emergency department. Code Status & VTE Plan VTE Prophylaxis Plan VTE Prophylaxis will be ordered: Yes (1) Acute appendicitis Acute appendicitis type: with localized peritonitis Appendicitis abscess presence: with abscess Appendicitis gangrene presence: without gangrene Appendicitis perforation presence: unspecified whether perforation present Qualified Code(s): K35.33 - Acute appendicitis with perforation and localized peritonitis, with abscess
[2021-06-04] MEDS ORDERED: PROMETHAZINE HCL 12.5 MG in SODIUM CHLORIDE 0.9% 50 ML IV PRN (10:29)
[2021-06-04] MEDS ORDERED: ATROPINE SULFATE 0.1 MG/ML 10ML SYR IV PRN (10:29)
[2021-06-04] MEDS ORDERED: ePHEDrine sulfate 50 MG/ML AMP IV PRN (10:29)
[2021-06-04] MEDS ORDERED: ONDANSETRON INJ 2 MG/ML 2 ML VIAL IV PRN ×2 (10:29→12:06)
[2021-06-04] MEDS ORDERED: fentaNYL citrate 100 MCG/2 ML VIAL IV PRN (10:29)
--- NOTE | 2021-06-04 10:33 | History & Physical Bridge Note ---
Date of Service June 04, 2021 History & Physical Bridge Note I have examined the patient, reviewed the History & Physical and in the interval since the performance of the History & Physical I have noted the following changes of clinical significance: no changes noted
[2021-06-04] MEDS ORDERED: LIDOCAINE 1% LOCAL 20 ML VIAL ONE (11:07)
[2021-06-04] MEDS ORDERED: BUPIVACAINE 0.5 % 5 MG/1 ML MPF 30ML VIAL ONE (11:07)
[2021-06-04] MEDS ORDERED: BACITRACIN OINT 15 GM TUBE ONE (11:07)
[2021-06-04] MEDS ORDERED: NEOSTIGMINE METHYLSULFATE 1 MG/ML 10ML VIAL ONE (11:47)
[2021-06-04] MEDS ORDERED: GLYCOPYRROLATE 0.2 MG/ML VIAL ONE (11:47)
--- NOTE | 2021-06-04 12:04 | Post Operative Brief Note ---
Immediate Post Op Note v1 Date of Surgery June 04, 2021 Pre & Post Diagnosis Operation Date: 06/04/21 09:40 Pre-Op Diagnosis: ABD PAIN, Acute appendicitis Post-Op Diagnosis: ABD PAIN, Acute appendicitis I identified the patient and participated in the time-out.: Yes Procedure Operation Date: 06/04/21 09:40 Actual Procedures p Laparoscopic Appendectomy(Not Applicable) - Neda Carmen MD Surgeon Neda Carmen MD Steel Handler BILL Link Estimated Blood Loss 10 Findings Consistent with Post-Op Diagnosis acute appendicitis Fluids 700ml Specimens appendicitis Anesthesia Type General Complications none Disposition Accompanied Patient To Recovery: Yes
--- NOTE | 2021-06-04 12:43 | Operative Report (OR) ---
DATE OF PROCEDURE: 06/04/2021. PREOPERATIVE DIAGNOSIS: Acute appendicitis. POSTOPERATIVE DIAGNOSIS: Acute appendicitis. OPERATION: Laparoscopic appendectomy. SURGEON: Neda Carmen MD INSULATION PACKER: Kristen Norton PA-C ANESTHESIA: General. ESTIMATED BLOOD LOSS: About 10 mL. FINDINGS: Acute appendicitis. COMPLICATIONS: None. INDICATIONS FOR PROCEDURE: This is a 20-year-old gentleman who presented to the ED with a 1-day hist ory of acute abdominal pain. The patient had a CT scan diagnosis of acute appendicitis. I recommend ed to do laparoscopic appendectomy, possible open. I did talk to the patient about the benefits, ris ks, and alternate procedures. I indicated the risks may include, but not limited to, such as bleedin g, infection, abscess, may need more procedure, injury to other organs, incisional hernia, sepsis. T he patient understands. He signed informed consent and I answered all questions. DETAILS OF PROCEDURE: After we identified the patient and verified the procedure, we brought in the patient to the OR, put the patient in the supine position. The patient received SCDs on bilateral le gs to prevent DVT. Also, the patient received 3.375 grams Zosyn IV for prophylactic antibiotic and t he patient received general anesthesia without difficulty. His abdomen was prepped and draped in rou jadiel sterile fashion. After timeout, I injected the local anesthesia by using 1% lidocaine mixed wit h 0.5% Marcaine just above the umbilicus, then I made a small incision just above umbilicus, opened f ascia, opened peritoneum. Under direct vision, I put a Yany trocar in, connected to CO2 to create pneumoperitoneum, flow rate at 6 liters per minute, pressure not more than 14 mmHg. Once we got a ni ce pneumoperitoneum, we put a camera in, looked around the abdomen. It shows normal finding on the s mall bowel and large bowel; however, the appendix was significantly enlarged with inflammation on the appendix. No significant perforation on the appendix. Appendix size diameter of about 1.6 cm. At this moment, we put another two 5 mm trocars on the left lower quadrant area, then we mobilized the a ppendix. We used the Harmonic to take down the appendiceal, rechecked, no active bleeding. Then, we used a 45 mm Endo-LATESHA stapler for transection on the base of appendix, rechecked the staple line int act, and no leak, no active bleeding. Then we removed the appendix through the catch bag. Then we reinserted the Yany trocar in, connected to CO2 to create pneumoperitoneum. Again looked a round the abdomen. There was minimal fluid around the pelvic area. We suctioned and rechecked the s taple line intact and no leak, no active bleeding. Then we removed all trocars under direct vision. No active bleeding from the trocar site. Pneumoperitoneum was released. Then I closed the umbilica l incision fascial layer by using 0 Vicryl [id number] x2, closed subcutaneous layer by using 2-0 Vicryl interruptedly, closed skin by using 4-0 Vicryl continuous running, closed another two 5 mm tr ocar sites skin only by using 4-0 Vicryl. Then we put the dressing on. The patient tolerated the pr ocedure well. All instrument, needle, and sponge counts were correct x2 at the end of the case. The patient was transferred to Recovery Room in stable condition. The specimen was sent to pathology. After the procedure, I did talk to the patient about the OR finding and the procedure we did. The brit sylvester understands. The miller head assistant wet process, Kristen, was necessary for this procedure. Her role was to hold the camera, exposure, and traction. Job ID: [id number]
--- NOTE | 2021-06-04 12:53 | Anesthesiology Progress Note ---
Date of Service June 04, 2021 Anesthesia Post Procedure Vital Signs Vital Signs: Temp Pulse Pulse Pulse Resp BP BP 06/04/21 12:50 99.0 F 76 20 111/66 06/04/21 12:40 77 20 115/66 06/04/21 12:30 80 20 118/68 06/04/21 12:22 98.8 F 95 H 14 122/74 06/04/21 10:19 98.4 F 79 20 122/63 06/04/21 10:01 96 H 20 128/68 06/04/21 08:36 75 16 117/64 06/04/21 07:51 83 16 117/69 06/04/21 06:32 76 14 128/74 06/04/21 04:13 72 20 125/68 06/04/21 01:40 98.4 F 91 H 18 117/67 Pulse Ox 06/04/21 12:50 95 06/04/21 12:40 100 06/04/21 12:30 100 06/04/21 12:22 98 06/04/21 10:19 99 06/04/21 10:01 97 06/04/21 08:36 100 06/04/21 07:51 100 06/04/21 06:32 99 06/04/21 04:13 98 06/04/21 01:40 99 Pain Intensity Abdomen: Pain Intensity: 3 Transfer of Care Handoff Completed per policy Notes Mental Status: alert / awake / arousable and participated in evaluation Patient Amnestic to Procedure: Yes Nausea / Vomiting: adequately controlled Pain: adequately controlled Airway Patency, RR, SpO2: stable & adequate BP & HR: stable & adequate Hydration State: stable & adequate Anesthetic Complications: no major complications apparent and Pt Satisfied with anesthetic care
[2021-06-04] MEDS ORDERED: LACTATED RINGER'S 1,000 ML IV SCH (13:22)
[2021-06-04] MEDS ORDERED: oxyCODONE/ACETAMINOPHEN 5mg/325mg TAB PO PRN (13:22)
[2021-06-04] MEDS ORDERED: ACETAMINOPHEN 325 MG TAB PO PRN (13:22)
[2021-06-04] MEDS ORDERED: HYDROmorphone INJ 0.5 MG/0.5 ML SYR IV PRN (13:22)
[2021-06-04] MEDS ORDERED: PIPERACILL/TAZOBAC CONSULT ACTIVE PRN (13:22)
[2021-06-04] MEDS ORDERED: PIPERACILLIN/TAZOBACTAM 3.375 GM in DEXTROSE 5% 100 ML IV STA (13:45)
[2021-06-04] MEDS ORDERED: PIPERACILLIN/TAZOBACTAM 3.375 GM in DEXTROSE 5% 100 ML IV SCH (20:00)
--- NOTE | 2021-06-08 13:07 | Discharge Summary ---
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 Became more severe overnight. No fever, chills, nausea, vomiting, diarrhea, constipation, dysuria. Pain located in mid abdomen and right lower abdomen. Never had similar pain before. No prior abdominal surgeries. Principal Diagnosis Acute appendicitis Discharge Data Allergies Allergy/AdvReac Type Severity Reaction Status Date / Time No Known Allergies Allergy Verified 06/10/19 13:25 Consultations 06/04/21 08:41 Consult General Surgery Stat Procedures Performed Operation Date: 06/04/21 09:40 Actual Procedures p Laparoscopic Appendectomy(Not Applicable) - Neda Carmen MD Ordered Studies 06/04/21 04:44 CT abd pelvis oral and IV con Stat Hospital Course (1) Acute appendicitis: Patient was taken to operating room for laparoscopic appendectomy possible open from emergency department by Dr. Carmen. Patient was found to have acute appendicitis with no perforation or abscess. Patient tolerated procedure well and was transferred to PACU. Patients diet was advanced as tolerated and given pain control as needed. Patient was stable and was discharged from PACU to home in stable condition. Total Time Total Time Spent Total Time Spent (In Minutes): 10 Discharge Plan Discharge Items Patient Disposition: Home - Self-Care Reason For Visit: ACUTE APPENDICITIS Discharge Diagnosis: acute appendicitis Condition on Discharge: Good Activity: As commented below Lifting: No more than 25 pounds Lifting Comment: for 4 weeks Bathing: May shower/bathe in 3 days Sexual Activity: After two weeks Exercise/Sports: Rest today Driving/Machine Use: no driving while taking pain medicine, Non-emergency contact: Surgeon Call non-emergency contact if: you have any medication questions, your pain is not controlled, your pain is worsening, your pain is concerning for you, you have a fever, your temperature is above 101, your wound has increased redness, your wound has increased drainage and your wound pain has increased Follow-up/Referrals: [facility] [Primary Care Provider] - Neda Carmen MD [Physician] - (Follow-up surgical office in 2 weeks) Diet: Regular Addtl Attending Provider Instructions: Post-Surgical ~Discharge Instructions Activity Recommendations: - lifting limitation: (25 pounds for 4 weeks), - exercise/sex/sports limit: (nonstrenuous for 2 weeks), - driving or machine use limit: (none for 1 week or until no longer taking narcotic pain medication), - Shower/bathe limit: (november shower beginning Monday) Diet: - Resume previous diet SPECIAL CARE INSTRUCTIONS: - May shower on Monday. Sponge bath and wash hair in meantime. On Monday, remove outer dressings and shower. Let water run over area and pat dry. - Leave steri strips on for one week and then remove. They may fall off on their own that is okay. - Call the surgeon's office with any questions or concerns - - (ex. temperature higher than 101 degrees F, excessive bleeding or pain). MEDICATIONS: - Resume previous medications unless instructed otherwise by your surgeon. - May alternate extra strength Tylenol and Ibuprofen as needed for mild to moderate pain. -650 mg Tylenol every 6 hours as needed - Ibuprofen 600 mg every 6 hours as needed (take with food) - Percocet 1 every 6 hours, as needed for moderate to severe pain - Recommend daily stool softener (Colace) while taking narcotic pain medication to prevent constipation or straining. FOLLOW UP VISIT: - If not already scheduled, please call the office to schedule a two week follow-up appointment. Office number Pending Studies at Discharge: Yes (appendix pathology, will be reviewed at follow-up visit) Stand-Alone Forms: Anesthesia/Sedation, Adult, [facility], Opioid Pain Management Medications and DC Order Prescriptions: New oxycodone-acetaminophen 5-325 mg tablet 1 tab PO Q6H PRN (Reason: pain) Qty: 12 RF: 0 ciprofloxacin HCl [Cipro] 500 mg tablet 500 mg PO BID Qty: 14 RF: 0 metronidazole 500 mg tablet 500 mg PO Q8H 7 Days Qty: 21 RF: 0 Continued cefuroxime axetil 500 mg Tablet 500 mg PO BID Qty: 3 RF: 0 prednisone 20 mg Tablet 40 mg PO DAILY Qty: 60 RF: 0 nicotine 7 mg/24 hr Patch 24 Hour 14 mg transdermal QAM Qty: 21 RF: 0 Discharge Orders: Discharge Order (Routine); Ordered 06/04/21 Ordered By: Neda Herrera/Other Patient Handouts: Preventing Deep Vein Thrombosis Admission Data Admit Date/Time: 06/04/21 12:06 Attending Provider: Neda Carmen Admit Provider: Neda Carmen Primary Care Provider: [place] Other Providers: Neda Carmen Other Interventions: Discharge Summary Assessment (RN) Last Done: 06/04/21 16:25
--- NOTE | 2021-06-08 21:45 | Discharge Summary (DS) ---
DATE OF ADMISSION: 06/04/2021. DATE OF DISCHARGE: 06/04/2021. ADMISSION DIAGNOSIS: Acute appendicitis. DISCHARGE DIAGNOSIS: Acute appendicitis. OPERATION: Laparoscopic appendectomy. SURGEON: Neda Carmen MD. DETAILS OF DISCHARGE SUMMARY: This is a 20-year-old gentleman who presented to ED with acute abdomin al pain. The patient had a CT scan diagnosis of acute appendicitis. I took the patient to the OR, w e did laparoscopic appendectomy. The patient tolerated the procedure well and after procedure, the p atient was transferred to recovery room and later on transferred to regular floor. The patient is do ing fine and tolerating the diet. No nausea, no vomiting. PHYSICAL EXAMINATION: VITAL SIGNS: Temperature is 36.9, respiratory rate 18, heart rate 88, blood pressure 130/58, O2 satu ration 97% on room air. GENERAL: Alert, awake, oriented x3. HEENT: With normal limitation. NEUROLOGIC: Intact. NECK: No JVD. CHEST: Bilateral lung sounds clear. HEART: Normal S1 and S2. No murmur. ABDOMEN: Soft, nondistended. All incisions intact. No redness. Mild tenderness on the incision si te. No rebound pain. Bowel sounds positive. EXTREMITIES: No edema. The patient wanted to go home. We gave the patient postop care instruction, patient understands. I will follow up the patient in 2 weeks. Job ID: [id number]
== END 2021-06-04 16:25 | disposition home or self-care (01) ==
LOC: ED 01:38 → PACUINP 10:09 → ASU 10:09